=== PATIENT | female | born 1980 | race Caucasian/White ===

== ENCOUNTER 2020-06-03 10:18 | Emergency (ER) | payer OTHER ==
[~2020-06-03] VITALS: Ht 170.2 cm; Wt 86.2 kg
[2020-06-03] MEDS ORDERED: IBUP800 PO (12:05)
[2020-06-03] MEDS ORDERED: Norco 5-325 Ta1 EACH PO (12:05)
== END 2020-06-03 12:30 | disposition home or self-care (01) ==
LOC: ER 10:18
DX: M54.6 Pain in thoracic spine (principal); E11.9 Type 2 diabetes mellitus without complications; Z88.5 Allergy status to narcotic agent; X50.1XXA Overexertion from prolonged static or awkward postures, initial encounter
CPT/HCPCS: 71045; 93005; 93010; 96372; 99283-25; J1885

== ENCOUNTER → 2022-12-25 | Outpatient (CLI) | payer OTHER ==
[~2022-12-25] MED LIST: IBUP800 PO; Norco 5-325 Ta1 EACH PO
[2022-12-26 09:46] LABS: Candida species (DNA Probe) Negative (NEGATIVE); G. vaginalis (DNA Probe) Positive (NEGATIVE); T. vaginalis (DNA Probe) Negative (NEGATIVE)
== END | disposition home or self-care (01) ==
LOC: LAB 17:27 → LAB SHORT 17:27
PROVIDERS: Physician Assistant
DX: L29.3 Anogenital pruritus, unspecified (principal)
CPT/HCPCS: 87480; 87510; 87660

== ENCOUNTER → 2023-02-24 | Outpatient (CLI) | payer OTHER ==
[2023-02-24 16:58] LABS: Adenovirus F 40/41 Not Detected (NOT DETECT); Astrovirus Not Detected (NOT DETECT); Campylobacter Sp Not Detected (NOT DETECT); Cryptosporidium Not Detected (NOT DETECT); Cyclospora Cayetanensis Not Detected (NOT DETECT); E. Coli O157 Not Detected (NOT DETECT); Entamoeba Histolytica Not Detected (NOT DETECT); Enteroaggregative E. coli-EAEC Not Detected (NOT DETECT); Enteropathogenic E. coli-EPEC Not Detected (NOT DETECT); Enterotoxigenic E. coli-ETEC Not Detected (NOT DETECT); Giardia Lamblia Not Detected (NOT DETECT); Norovirus GI/GII Detected (NOT DETECT); Plesiomonas Shigelloides Not Detected (NOT DETECT); Rotavirus A Not Detected (NOT DETECT); Salmonella Sp Not Detected (NOT DETECT); Sapovirus Not Detected (NOT DETECT); Shiga Toxin-prod E. coli-STEC Not Detected (NOT DETECT); Shigella/Enteroin E. coli-EIEC Not Detected (NOT DETECT); Vibrio Cholerae Not Detected (NOT DETECT); Vibrio Sp Not Detected (NOT DETECT); Yersinia Enterocolitica Not Detected (NOT DETECT)
== END | disposition home or self-care (01) ==
LOC: LAB SHORT 13:35 → LAB 13:35
PROVIDERS: Physician Assistant Medical
DX: K52.9 Noninfective gastroenteritis and colitis, unspecified (principal)
CPT/HCPCS: 87507

== ENCOUNTER 2023-04-04 09:46 | Day surgery (SDC) | payer OTHER ==
[~2023-04-04] VITALS: Ht 170.2 cm; Wt 85.6 kg
[2023-04-04] MEDS ORDERED: PIOG15 (10:15)
[2023-04-04 10:25] VITALS: BP 110/95
== END 2023-04-04 12:19 | disposition home or self-care (01) ==
LOC: ORSCSDS 09:46
PROVIDERS: Internal Medicine Gastroenterology
PROC: 0DBB8ZX Excision of Ileum, Via Natural or Artificial Opening Endoscopic, Diagnostic (ICD-10-PCS; principal; 2023-04-04 11:00)
PROC: 0DBE8ZX Excision of Large Intestine, Via Natural or Artificial Opening Endoscopic, Diagnostic (ICD-10-PCS; principal; 2023-04-04 11:00)
PROC: 0D758ZZ Dilation of Esophagus, Via Natural or Artificial Opening Endoscopic (ICD-10-PCS; principal; 2023-04-04 11:00)
PROC: 0DB78ZX Excision of Stomach, Pylorus, Via Natural or Artificial Opening Endoscopic, Diagnostic (ICD-10-PCS; principal; 2023-04-04 11:00)
PROC: 0DBP8ZX Excision of Rectum, Via Natural or Artificial Opening Endoscopic, Diagnostic (ICD-10-PCS; principal; 2023-04-04 11:00)
PROC: 0DB98ZX Excision of Duodenum, Via Natural or Artificial Opening Endoscopic, Diagnostic (ICD-10-PCS; principal; 2023-04-04 11:00)
DX: R19.7 Diarrhea, unspecified (principal); K29.70 Gastritis, unspecified, without bleeding; K62.89 Other specified diseases of anus and rectum; R13.14 Dysphagia, pharyngoesophageal phase; K21.9 Gastro-esophageal reflux disease without esophagitis; K44.9 Diaphragmatic hernia without obstruction or gangrene; K22.2 Esophageal obstruction; E11.9 Type 2 diabetes mellitus without complications; Z79.899 Other long term (current) drug therapy
CPT/HCPCS: 82947; 88305; C1726; J2250; J2405; J2704; J7120

== ENCOUNTER 2023-05-08 01:34 | Day surgery (SDC) | payer OTHER ==
[2023-05-08] VITALS (7 sets, daily range): BP systolic 107–117; BP diastolic 60–88
[~2023-05-08 01:34] MED LIST changes: +PIOG15
[2023-05-08] MEDS ORDERED: THERA-D2000 UNIT PO (14:16)
[2023-05-08] MEDS ORDERED: HYDHCL25 PO (14:16)
[2023-05-08] MEDS ORDERED: PRED20 PO (14:16)
[2023-05-08] MEDS ORDERED: INFLECTRA100 MG IV (14:18)
--- NOTE | 2023-05-08 14:19 | NUR ---
PT DECLINES PRE MEDS AT THIS TIME. ALREADY TAKES DAILY PREDNISONE.
== END 2023-05-08 16:33 | disposition home or self-care (01) ==
LOC: ATC 01:34
DX: K50.012 Crohn's disease of small intestine with intestinal obstruction (principal); E55.9 Vitamin D deficiency, unspecified; E11.9 Type 2 diabetes mellitus without complications; Z88.5 Allergy status to narcotic agent; Z88.8 Allergy status to other drugs, medicaments and biological substances; Z79.899 Other long term (current) drug therapy
CPT/HCPCS: 96413; 96415; J7050; Q5103

== ENCOUNTER 2023-05-22 03:06 | Day surgery (SDC) | payer OTHER ==
[~2023-05-22 03:06] MED LIST changes: +HYDHCL25 PO; +INFLECTRA100 MG IV; +PRED20 PO; +THERA-D2000 UNIT PO
[2023-05-22 13:30] VITALS: BP 142/75
[2023-05-22 14:16] VITALS: BP 143/83
[2023-05-22 14:32] VITALS: BP 127/78
[2023-05-22 14:48] VITALS: BP 124/79
[2023-05-22 15:02] VITALS: BP 129/73
[2023-05-22 15:33] VITALS: BP 127/77
== END 2023-05-22 16:07 | disposition home or self-care (01) ==
LOC: ATC 03:06
DX: K50.012 Crohn's disease of small intestine with intestinal obstruction (principal)
CPT/HCPCS: 96413; 96415; J7050; Q5103

== ENCOUNTER 2023-06-18 02:15 | Day surgery (SDC) | payer OTHER ==
[2023-06-18 13:39] VITALS: BP 122/71
[2023-06-18 14:35] VITALS: BP 120/75
[2023-06-18 14:50] VITALS: BP 110/80
[2023-06-18 15:05] VITALS: BP 107/80
[2023-06-18 15:20] VITALS: BP 117/66
[2023-06-18 15:50] VITALS: BP 108/74
== END 2023-06-18 16:20 | disposition home or self-care (01) ==
LOC: ATC 02:15
DX: K50.80 Crohn's disease of both small and large intestine without complications (principal); E13.9 Other specified diabetes mellitus without complications; E55.9 Vitamin D deficiency, unspecified
CPT/HCPCS: 96413; 96415; J7050; Q5103

== ENCOUNTER → 2023-07-16 | Outpatient (CLI) | payer OTHER ==
[2023-07-17 12:00] LABS: Candida species (DNA Probe) Negative (NEGATIVE); G. vaginalis (DNA Probe) Negative (NEGATIVE); T. vaginalis (DNA Probe) Negative (NEGATIVE)
== END | disposition home or self-care (01) ==
LOC: LAB SHORT 17:18 → LAB 17:18
PROVIDERS: Physician Assistant
DX: N76.0 Acute vaginitis (principal)
CPT/HCPCS: 87480; 87510; 87660

== ENCOUNTER 2023-08-13 02:32 | Day surgery (SDC) | payer OTHER ==
[2023-08-13 14:00] VITALS: BP 101/89
[2023-08-13] MEDS ORDERED: AZAT50 PO (14:04)
--- NOTE | 2023-08-13 15:45 | NUR ---
AT 1515 PATIENT CALLED RN TO REPORT FEELING LIKE SHE COULDNT BREATH. PATIENT WAS FLUSHED, BP ELEVATED 160/100. IV STOPPED IMMEDIATELY. SHE SAID SHE FELT A TIGHTNESS IN HER CHEST AND THROAT AND HAD A HEADACHE. AIRWAY CLEAR. INFLECTRA HAD BEEN STARTED AT 1455 AT 125ML/HR PER PATIENT REQUEST SHE HAD NOT EXPERIENCED A REACTION WITH HER PREVIOUS INFUSIONS. PATIENT RECIEVED APPROXIMATELY 30MLS OF MEDICATION WHEN REACTION OCCURED. PATIENT REFUSED PREMEDS PRIOR TO INFUSION BEING STARTED AND REFUSED THE MEDS FOR INFUSION REACTION. SHE WANTED TO TAKE HER PREMEDS AT THIS TIME. PO TYLENOL AND PO BENADRYL GIVEN PER MD PREMED ORDER. AT 1526 VSS - BP 127/74 HR 83 SP02 96% ON RA AND RESPIRATIONS 16. NOTIFIED MD OFFICE. NEW ORDERS RECIEVED TO GIVE IV SOLUMEDROL AND RESUME INFUSION AT 10ML/HR AND FOLLOW BUMP SCHEDULE. PATIENT IS AGREEABLE TO THIS PLAN
--- NOTE | 2023-08-13 16:33 | NUR ---
INFUSION RESTARTED @ 10ML/HR AT 1625
[2023-08-13 16:40] VITALS: BP 114/76
[2023-08-13 16:55] VITALS: BP 110/72
[2023-08-13 17:12] VITALS: BP 106/70
== END 2023-08-13 18:24 | disposition home or self-care (01) ==
LOC: ATC 02:32
DX: K50.80 Crohn's disease of both small and large intestine without complications (principal)
CPT/HCPCS: 96375; 96413; 96415; A9270; J2920; J7050; Q5103

== ENCOUNTER 2023-08-23 18:08 | Emergency (ER) | payer OTHER ==
[~2023-08-23] VITALS: Ht 170.2 cm; Wt 85.3 kg
[~2023-08-23 18:08] MED LIST changes: +AZAT50 PO
[2023-08-23 18:50] VITALS: BP 135/97
[2023-08-23] MEDS ORDERED: METPRE4DP PO (21:39)
[2023-08-23] MEDS ORDERED: Robaxin750 MG PO (21:39)
[2023-08-23] MEDS ORDERED: Voltaren100 GM TOP (21:39)
== END 2023-08-23 21:50 | disposition home or self-care (01) ==
LOC: ER 18:08
DX: M54.50 Low back pain, unspecified (principal); M70.72 Other bursitis of hip, left hip; E11.9 Type 2 diabetes mellitus without complications; F32.A Depression, unspecified; Z91.040 Latex allergy status; Z88.5 Allergy status to narcotic agent; Z88.8 Allergy status to other drugs, medicaments and biological substances; Z79.899 Other long term (current) drug therapy; Z79.84 Long term (current) use of oral hypoglycemic drugs
CPT/HCPCS: 99282

== ENCOUNTER → 2024-06-30 | Outpatient (CLI) | payer OTHER ==
[~2024-06-30] MED LIST changes: +METPRE4DP PO; +Robaxin750 MG PO; +Voltaren100 GM TOP
[2024-07-04 10:58] LABS: CALPROTECTIN,FECAL 557 ug/g (<=49)
== END | disposition home or self-care (01) ==
LOC: LAB SHORT 15:30 → LAB 15:30
PROVIDERS: Physician Assistant Medical
DX: K50.80 Crohn's disease of both small and large intestine without complications (principal)
CPT/HCPCS: 83993

== ENCOUNTER 2024-07-16 05:45 | Day surgery (SDC) | payer OTHER ==
[~2024-07-16] VITALS: Wt 92.0 kg
[2024-07-16 15:10] VITALS: BP 144/86
[2024-07-16] MEDS ORDERED: Vedolizumab 300 MG in NS 250 ML IV SCH (15:30)
--- NOTE | 2024-07-16 17:18 | NUR ---
Pt requested her medication be run slower then over 30 min as she has had medication reactions in the past and was fearful of another reaction. Pt tolerated new medication well without any reported side effects or reactions.
== END 2024-07-16 16:59 | disposition home or self-care (01) ==
LOC: ATC 05:45
DX: K50.80 Crohn's disease of both small and large intestine without complications (principal); E11.9 Type 2 diabetes mellitus without complications; Z88.5 Allergy status to narcotic agent; Z88.8 Allergy status to other drugs, medicaments and biological substances; Z79.899 Other long term (current) drug therapy
CPT/HCPCS: 96365; J3380; J7050

== ENCOUNTER 2024-08-02 03:34 | Day surgery (SDC) | payer OTHER ==
[2024-08-02] MEDS ORDERED: Vedolizumab 300 MG in NS 250 ML IV SCH (07:00)
[2024-08-02 14:45] VITALS: BP 111/70
[2024-08-02] MEDS ORDERED: ENTYVIO300 M1 IV (14:49)
[2024-08-02] MEDS ORDERED: PREG75 PO (14:50)
[2024-08-02] MEDS ORDERED: DULO60 PO (14:50)
== END 2024-08-02 15:47 | disposition home or self-care (01) ==
LOC: ATC 03:34
DX: K50.80 Crohn's disease of both small and large intestine without complications (principal); Z79.899 Other long term (current) drug therapy; Z88.5 Allergy status to narcotic agent; Z88.8 Allergy status to other drugs, medicaments and biological substances; Z91.040 Latex allergy status; Z90.49 Acquired absence of other specified parts of digestive tract; Z90.710 Acquired absence of both cervix and uterus
CPT/HCPCS: 96365; J3380; J7050

== ENCOUNTER → 2024-08-16 | Outpatient (CLI) | payer OTHER ==
[~2024-08-16] MED LIST changes: +DULO60 PO; +ENTYVIO300 M1 IV; +PREG75 PO
[2024-08-18 01:51] LABS: CALPROTECTIN,FECAL 1000 ug/g (<=49)
== END ==
LOC: LAB SHORT 14:28 → LAB 14:28
PROVIDERS: Physician Assistant Medical
DX: K50.80 Crohn's disease of both small and large intestine without complications (principal)
CPT/HCPCS: 83993

== ENCOUNTER → 2024-09-23 | Outpatient (CLI) | payer OTHER | LOC: LAB SHORT 14:53 → LAB 14:53 | DX: R10.2 Pelvic and perineal pain (principal) | CPT/HCPCS: 87077; 87086; 87186 ==

== ENCOUNTER 2024-09-24 03:08 | Day surgery (SDC) | payer OTHER ==
[2024-09-24] MEDS ORDERED: Vedolizumab 300 MG in NS 250 ML IV SCH (06:00)
[2024-09-24 14:10] VITALS: BP 153/87
== END 2024-09-24 15:26 | disposition home or self-care (01) ==
LOC: ATC 03:08
DX: K50.80 Crohn's disease of both small and large intestine without complications (principal); E11.9 Type 2 diabetes mellitus without complications; Z88.5 Allergy status to narcotic agent; Z79.899 Other long term (current) drug therapy
CPT/HCPCS: 96365; J3380; J7050

== ENCOUNTER 2024-11-02 10:31 | Day surgery (SDC) | payer OTHER ==
[~2024-11-02] VITALS: Ht 170.2 cm; Wt 89.8 kg
[~2024-11-02 10:31] MED LIST changes: +Lactated Ringer's 1,000 ML IV ONE; +propofoL 50 ML IV ONE
[2024-11-02] MEDS ORDERED: PRED5 (11:25)
[2024-11-02] MEDS ORDERED: TRULICITY1.5 MG/0.1 (11:25)
[2024-11-02] MEDS ORDERED: Lactated Ringer's 1,000 ML IV ONE (11:44)
[2024-11-02] MEDS ORDERED: Midazolam HCL 1 MG/ML 5MLVIAL ONE (11:58)
[2024-11-02] MEDS ORDERED: propofoL 50 ML IV ONE ×2 (12:16→12:41)
[2024-11-02] MEDS ORDERED: ePHEDrine Sulfate 50 MG/ML 1ML Injection ONE (12:26)
[2024-11-02 14:40] VITALS: BP 115/78
== END 2024-11-02 13:45 | disposition home or self-care (01) ==
LOC: ORSCSDS 10:31
PROVIDERS: Internal Medicine Gastroenterology
PROC: 0D7B8ZZ Dilation of Ileum, Via Natural or Artificial Opening Endoscopic (ICD-10-PCS; principal; 2024-11-02 12:00)
PROC: 0DBE8ZX Excision of Large Intestine, Via Natural or Artificial Opening Endoscopic, Diagnostic (ICD-10-PCS; principal; 2024-11-02 12:00)
DX: K50.90 Crohn's disease, unspecified, without complications (principal); K52.9 Noninfective gastroenteritis and colitis, unspecified; K56.699 Other intestinal obstruction unspecified as to partial versus complete obstruction; K64.4 Residual hemorrhoidal skin tags; E11.9 Type 2 diabetes mellitus without complications; Z79.899 Other long term (current) drug therapy; Z79.85 Long-term (current) use of injectable non-insulin antidiabetic drugs
CPT/HCPCS: 82947; 88305; C1726; J2250; J2704; J7120

== ENCOUNTER → 2025-02-06 | Outpatient (CLI) | payer OTHER ==
[~2025-02-06] MED LIST changes: -Lactated Ringer's 1,000 ML IV ONE; +PRED5; +TRULICITY1.5 MG/0.1; -propofoL 50 ML IV ONE
[2025-02-10 15:35] LABS: CALPROTECTIN,FECAL 124 ug/g (<=49)
== END | disposition home or self-care (01) ==
LOC: LAB SHORT 11:46 → LAB 11:46
PROVIDERS: Physician Assistant Medical
DX: K50.818 Crohn's disease of both small and large intestine with other complication (principal)
CPT/HCPCS: 83993